=== PATIENT | male | born 1965 | race Caucasian/White ===

== ENCOUNTER → 2018-06-05 | Outpatient (CLI) | payer OTHER | LOC: FIMAGING 15:03 | PROVIDERS: ATTEND Family Medicine | DX: N50.812 Left testicular pain (principal); N43.3 Hydrocele, unspecified ==

== ENCOUNTER → 2018-06-05 | Outpatient (CLI) | payer OTHER | LOC: GIMAGING 14:11 → EDSTATUS 15:38 | PROVIDERS: ATTEND Family Medicine | DX: M51.36 Other intervertebral disc degeneration, lumbar region (principal); M25.78 Osteophyte, vertebrae ==